=== PATIENT | female | born 1960 | race Caucasian/White ===

== ENCOUNTER 2018-11-19 08:26 | Day surgery (SDC) | payer MEDICARE, MEDICAID ==
[~2018-11-19 08:26] MED LIST: PROPOFOL INJ 200 MG/20 ML VIAL IV ONE
[2018-11-19 10:22] VITALS: BP 117/70
[2018-11-19] MEDS ORDERED: LIDOCAINE 2% INJ-PF (100 MG/5 ML) SYRINGE ONE (13:14)
--- NOTE | 2018-11-19 14:31 | Operative Report ---
Operative Report DATE OF SURGERY: 11/19/18 Operative Report: The risks, benefits and alternatives of the procedure including the risk of bleeding, perforation requiring surgery have been explained to the patient in detail and informed consent has been obtained. Patient is taken back to the endoscopy suite and placed in the left, lateral decubital position. Timeout was called. Propofol medication is administered. Rectal examination is done which did not reveal any masses, tears or fissures. An Olympus videoscope was introduced into the patient's rectum. The scope was then carefully advanced all the way to the cecum. The cecum was identified by the usual anatomical landmarks of the ileocecal valve as well as the appendiceal office. Photodocumentation is obtained. The scope was then sequentially pulled back via the various segments of the colon including the ascending colon, hepatic flexure, transverse colon, splenic flexure, descending colon and finally into the rectosigmoid portions of the colon. Retroflexion maneuvers performed. The risks benefits and alternatives of the procedure explained to the patient in detail and informed consent is obtained.A GIF Olympus video scope was inserted into the patient's mouth and hypopharynx, the esophagus is identified intubated and insufflated, the scope was then advanced through the esophagus stomach and duodenum, retroflexion maneuver is done ,the esophagus stomach and first and second portions of the duodenum examined. PREOPERATIVE DIAGNOSIS: Rectal bleeding. Epigastric pain POSTOPERATIVE DIAGNOSIS: Descending colon polyp that was removed via biopsy forceps. Internal hemorrhoids. Gastritis status post biopsy rule out Helicobacter pylori. Hiatal hernia OPERATION: Colonoscopy with biopsy. EGD with biopsy SURGEON: JOHN MERLOS ANESTHESIA: LMAC TISSUE REMOVED OR ALTERED: As noted above. COMPLICATIONS: None. ESTIMATED BLOOD LOSS: None. INTRAOPERATIVE FINDINGS: As noted above. PROCEDURE: Patient tolerated the procedure well. No immediate postprocedure complications are noted. Patient is discharged in good condition. Discharge date 11/19/2018. Discharge diet: Regular. Discharge activity: Regular. 2 to 3-week follow-up to discuss findings. Patient is instructed to call the office or proceed to the emergency room should there be any further problems or questions. Wait on the pathology. 3 to 5-year surveillance colonoscopy.
== END 2018-11-19 10:14 | disposition home or self-care (01) ==
LOC: END 08:26
PROVIDERS: ATTEND Internal Medicine Gastroenterology
DX: K29.50 Unspecified chronic gastritis without bleeding (principal); D12.4 Benign neoplasm of descending colon; K62.5 Hemorrhage of anus and rectum; K64.8 Other hemorrhoids; K44.9 Diaphragmatic hernia without obstruction or gangrene; F17.210 Nicotine dependence, cigarettes, uncomplicated; Z86.73 Personal history of transient ischemic attack (TIA), and cerebral infarction without residual deficits
CPT/HCPCS: 43239; 45380; 88305 ×2; 00813; J2001; J2704; 813

== ENCOUNTER 2019-06-12 12:41 | Emergency (ER) | payer MEDICARE, MEDICAID ==
--- NOTE | 2019-06-12 14:11 | ER Document Report ---
ED Medical Screen (RME) - General Chief Complaint: Burn Stated Complaint: BURN Time Seen by Provider: 06/12/19 14:07 Primary Care Provider: JUSTIN SEYMOUR MD [Primary Care Provider] - Follow up as needed Mode of Arrival: Wheelchair Information source: Patient Notes: 58-year-old female presents to ED for infected foot to the right foot. She is redness going up her foot ankle and long-term up her calf. She states she burned her foot on Monday, she went to [facility] on Monday they started her on some Silvadene cream and told her to watch for infection she went back today and they told her to come to the emergency room because it is infected. Patient is alert oriented respirations regular nonlabored. I have greeted and performed a rapid initial assessment of this patient. A comprehensive ED assessment and evaluation of the patient, analysis of test results and completion of medical decision making process will be conducted by an additional ED providers. TRAVEL OUTSIDE OF THE [place] IN LAST 30 DAYS: No - Related Data Allergies/Adverse Reactions: iodine Allergy (Severe, Verified 06/12/19 14:06) Anaphylaxis shellfish derived Allergy (Severe, Verified 06/12/19 14:06) Anaphylaxis latex Allergy (Verified 06/12/19 14:06) Hives Penicillins Allergy (Verified 06/12/19 14:06) Hives codeine Adverse Reaction (Mild, Verified 06/12/19 14:06) Past Medical History - General Information source: Patient - Social History Cigarette use (# per day): Yes - Half a pack a day Chew tobacco use (# tins/day): No Frequency of alcohol use: Rare Drug Abuse: None Lives with: Family Family history: Reviewed & Not Pertinent - Past Medical History Cardiac Medical History: Reports: Hx Coronary Artery Disease - MITRAL VALVE PROPLASE Denies: Hx Heart Attack, Hx Hypertension Pulmonary Medical History: Reports: Hx Pneumonia Denies: Hx Asthma, Hx Bronchitis, Hx COPD Neurological Medical History: Reports: Hx Cerebrovascular Accident - X2. Denies: Hx Seizures Endocrine Medical History: Reports: None Renal/ Medical History: Reports: None Malignancy Medical History: Reports: None GI Medical History: Reports: Hx Hiatal Hernia, Hx Colonoscopy, Hx Endoscopy Musculoskeltal Medical History: Reports Hx Arthritis, Reports Hx Musculoskeletal Deformity, Reports Hx Musculoskeletal Trauma, Reports Other - Quadriplegic Psychiatric Medical History: Reports: Hx Anxiety Past Surgical History: Reports: Hx Cholecystectomy, Hx Hysterectomy, Hx Orthopedic Surgery - C5-C6 disc repair, complete quad due to second surgery, back surgery - Immunizations Hx Diphtheria, Pertussis, Tetanus Vaccination: Yes Physical Exam - Vital signs Vitals: Temp Pulse Resp BP Pulse Ox 98.4 F 101 H 18 119/65 100 06/12/19 13:44 06/12/19 13:44 06/12/19 13:44 06/12/19 13:44 06/12/19 13:44 Course - Vital Signs Vital signs: Temp Pulse Resp BP Pulse Ox 98.4 F 101 H 18 119/65 100 06/12/19 13:44 06/12/19 13:44 06/12/19 13:44 06/12/19 13:44 06/12/19 13:44 Doctor's Discharge - Discharge Referrals: JUSTIN SEYMOUR MD [Primary Care Provider] - Follow up as needed
[2019-06-12] MEDS ORDERED: OXYCODONE-ACETAMINOPHEN 5-325 MG TABLET PO ONE ×2 (14:39→17:56)
--- NOTE | 2019-06-12 14:53 | RADIOLOGY REPORT (SQ) ---
EXAM DESCRIPTION: FOOT RIGHT COMPLETE COMPLETED DATE/TIME: 06/12/2019 2:37 pm REASON FOR STUDY: Open draining wound right foot COMPARISON: None. NUMBER OF VIEWS: Three views. TECHNIQUE: AP, lateral and oblique radiographic images acquired of the right foot. LIMITATIONS: None. FINDINGS: MINERALIZATION: Normal. BONES: Indistinctness of the superior cortex of the talus. There is no acute fracture. JOINTS: The normal tarsometatarsal alignment is preserved SOFT TISSUES: No radiopaque foreign body or subcutaneous emphysema. OTHER: No other finding. IMPRESSION: Indistinctness of the superior cortex of the talus. Consider correlation with a bone sc an or MRI to exclude an osteomyelitis. TECHNICAL DOCUMENTATION: JOB ID: [id number] [employer]- All Rights Reserved Reading location - IP/workstation name: [email or web address]
[2019-06-12 16:27] LABS: ALBUMIN 4.6 g/dL (3.5-5.0); ALKALINE PHOSPHATASE 101 U/L (38-126); ANION GAP 11 (5-19); ASPARTATE AMINO TRANSFERASE 30 U/L (14-36); BILIRUBIN,DIRECT 0.4 mg/dL (0.0-0.4); BILIRUBIN,TOTAL 0.8 mg/dL (0.2-1.3); BLOOD UREA NITROGEN 8 mg/dL (7-20); CARBON DIOXIDE 28 mmol/L (22-30); CHLORIDE 99 mmol/L (98-107); GLUCOSE 91 mg/dL (75-110); POTASSIUM 4.2 mmol/L (3.6-5.0); TOTAL PROTEIN 8.7 g/dL (6.3-8.2)
--- NOTE | 2019-06-12 16:57 | ER Document Report ---
ED General - General Chief Complaint: Burn Stated Complaint: BURN Time Seen by Provider: 06/12/19 14:07 Primary Care Provider: JUSTIN SEYMOUR MD [Primary Care Provider] - Follow up as needed Mode of Arrival: Wheelchair Notes: Patient is a 58 year old female who presents to the ED due to concerns for possible infection of her right foot after spilling hot tea on her right foot on Monday. States she saw a primary care physician on Monday and was advised to use Silvadene BID and change the dressing BID. Patient has since developed increasing pain and redness and states her skin is now sloughing off when she dabs at it. Patient complains of pain that is not controlled by her home [place]. Denies fevers. Patient is wheelchair bound due to prior surgical complication resulting in partial quadriplegia per patient. TRAVEL OUTSIDE OF THE [place] IN LAST 30 DAYS: No - Related Data Allergies/Adverse Reactions: iodine Allergy (Severe, Verified 06/12/19 14:06) Anaphylaxis shellfish derived Allergy (Severe, Verified 06/12/19 14:06) Anaphylaxis latex Allergy (Verified 06/12/19 14:06) Hives Penicillins Allergy (Verified 06/12/19 14:06) Hives codeine Adverse Reaction (Mild, Verified 06/12/19 14:06) Home Medications: mitral valve prolapse. cva x 2 Past Medical History - General Information source: Patient - Social History Smoking Status: Current Every Day Smoker Cigarette use (# per day): Yes - 3 packs per day Chew tobacco use (# tins/day): No Frequency of alcohol use: Rare Drug Abuse: None Lives with: Family Family History: Reviewed & Not Pertinent Patient has suicidal ideation: No Patient has homicidal ideation: No - Past Medical History Cardiac Medical History: Reports: Hx Coronary Artery Disease - MITRAL VALVE PROPLASE Denies: Hx Heart Attack, Hx Hypertension Pulmonary Medical History: Reports: Hx Pneumonia Denies: Hx Asthma, Hx Bronchitis, Hx COPD Neurological Medical History: Reports: Hx Cerebrovascular Accident - X2. Denies: Hx Seizures Endocrine Medical History: Reports: None Renal/ Medical History: Reports: None Malignancy Medical History: Reports: None GI Medical History: Reports: Hx Hiatal Hernia, Hx Colonoscopy, Hx Endoscopy Musculoskeletal Medical History: Reports Hx Arthritis, Reports Hx Musculoskeletal Deformity, Reports Hx Musculoskeletal Trauma, Reports Other - Quadriplegic Psychiatric Medical History: Reports: Hx Anxiety Past Surgical History: Reports: Hx Cholecystectomy, Hx Hysterectomy, Hx Orthopedic Surgery - C5-C6 disc repair, complete quad due to second surgery, back surgery - Immunizations Hx Diphtheria, Pertussis, Tetanus Vaccination: Yes Hx Pneumococcal Vaccination: 04/10/13 Review of Systems - Review of Systems Constitutional: Chills. denies: Fever Musculoskeletal: See HPI Skin: See HPI -: Yes All other systems reviewed and negative Physical Exam - Vital signs Vitals: Temp Pulse Resp BP Pulse Ox 98.4 F 101 H 18 119/65 100 06/12/19 13:44 06/12/19 13:44 06/12/19 13:44 06/12/19 13:44 06/12/19 13:44 Interpretation: Tachycardic - Notes Notes: General: Pleasant female sitting on bed appearing anxious HEENT: PERRLA, EOM intact, no sclera icterus. Mild Left eye ptosis 2/2 previous stroke Neck: No apparent swelling Cardiac: Regular rate and rhythm, no murmurs, rubs, or gallops. 2+ pulses in BLE bilaterally including palpable R dorsalis pedis pulse over burn. Pulmonary: lungs clear to auscultation bilaterally, no wheezes, rales, or rhonchi GI: Normoactive bowel sounds, no tenderness to palpation in all four quadrants MSK: RLE tender to palpation up to the knee but not including the knee. Decrease ROM in RLE at the level of the ankle secondary to pain. Decrease ROM in lower and upper extremities (L>R) 2/2 previous stroke. Skin: Partial-thickness burn located on the dorsal and medial aspect of R foot approximately 4 inches in diameter and 5 inches in length with apparent granulation tissue surrounding the border of the wound. No visible subcutaneous tissue, bone, or eschar. Some discharge noted, small amount is purulent, no fluctuance. Significant nonpitting edema in R foot as well as erythema surrounding the wound and continuing circumferentially up to mid to upper R calf and anterior pepe. Neuro: Slightly decrease sensation in RLE. Course - Re-evaluation Re-evalutation: 06/12/19 18:12 CBC unremarkable, CMP unremarkable, foot x-ray shows possible osteomyelitis but this is completely inconsistent with physical examination, there is no evidence of a deeper wound, no evidence that anything communicates with her talus. Patient is recommended to have this followed up as an outpatient by primary care physician after burn heals. Suspect that this may be some haziness from the Silvadene that has been over top of the wound. Discussed with patient inpatient versus outpatient treatment for lower extremity cellulitis, discussed the importance of keeping the left foot elevated over the next several days while she takes oral antibiotics. Patient will return if she develops fevers, increasing redness or swelling or any new or concerning symptoms. If there is no improvement in the redness in the next 48 hours she will also return for reevaluation and possible admission. - Vital Signs Vital signs: Temp Pulse Resp BP Pulse Ox 98.4 F 101 H 18 119/65 100 06/12/19 13:44 06/12/19 13:44 06/12/19 13:44 06/12/19 13:44 06/12/19 13:44 - Laboratory Result Diagrams: 06/12/19 15:40 06/12/19 15:40 Laboratory results interpreted by me: 06/12/19 15:40 Total Protein 8.7 H Lipase 15.3 L Discharge - Discharge Clinical Impression: Burn of foot, right, second degree Qualifiers: Encounter type: initial encounter Qualified Code(s): T25.221A - Burn of second degree of right foot, initial encounter Condition: Stable Disposition: HOME, SELF-CARE Additional Instructions: [place] The seriousness of a burn is not always obvious at first. Delayed tissue damage and secondary infection may occur despite proper treatment. Proper care is very important. Please apply bacitracin and a thick layer over top of this burn once a day, clean it once a day with soap and water, pat it dry and then reapply the bacitracin and cover it with a clean dressing. Soaks to remove crusting are usually started in about two days. Quiros in certain areas require stretching to prevent disabling tightness, make sure you are moving your ankle through a full circular range of motion every day. You do have an infection of the skin of the lower leg on your right leg. Please keep your foot elevated at least the level of your waist, take the Keflex 1000 mg twice a day until it is gone. If you have any increase in redness over the next 24 hours or if your redness does not improve within the next 48 hours please return to the emergency department. Prescriptions: Oxycodone HCl/Acetaminophen [Percocet 5-325 mg Tablet] 1 tab PO Q6HP PRN #15 tab PRN Reason: Bacitracin Zinc [Bacitracin Oint 15 gm] 1 applic TP DAILY #1 tube Cephalexin Monohydrate [Keflex 500 mg Capsule] 1,000 mg PO BID #28 capsule Referrals: JUSTIN SEYMOUR MD [Primary Care Provider] - Follow up as needed Wound Care [Provider Group] - Follow up as needed (Please call to arrange follow-up for care of your foot if the redness improves.)
[2019-06-12 17:50] LABS: ABSOLUTE BASOPHILS # (AUTO) 0.1 10^3/uL (0.0-0.2); ABSOLUTE EOSINOPHILS # (AUTO) 0.2 10^3/uL (0.0-0.6); ABSOLUTE MONOCYTES (AUTO) 0.9 10^3/uL (0.1-1.4); ABSOLUTE NEUT (AUTO) 7.1 10^3/uL (1.7-8.2); BASOPHILS % (AUTO) 0.7 % (0-2); HEMATOCRIT 40.3 % (36.0-47.0); HEMOGLOBIN 13.6 g/dL (12.0-15.5); LYMPHOCYTES % (AUTO) 19.4 % (13-45); MEAN CORPUSCULAR HGB CONC 33.8 g/dL (32.0-36.0); MEAN CORPUSCULAR VOLUME 89 fl (80-97); MONOCYTES % (AUTO) 8.9 % (3-13); PLATELET COUNT 222 10^3/uL (150-450); RED BLOOD COUNT 4.53 10^6/uL (3.72-5.28); TOTAL CELLS COUNTED % (AUTO) 100 %; WHITE BLOOD COUNT 10.2 10^3/uL (4.0-10.5)
[2019-06-12] MEDS ORDERED: CEPHALEXIN 500 MG CAPSULE PO ONE (18:13)
[2019-06-12 19:05] VITALS: BP 93/54
== END 2019-06-12 19:05 | disposition home or self-care (01) ==
LOC: ER 12:41
DX: T25.221A Burn of second degree of right foot, initial encounter (principal); T31.0 Burns involving less than 10% of body surface; X10.0XXA Contact with hot drinks, initial encounter; F17.210 Nicotine dependence, cigarettes, uncomplicated; I25.10 Atherosclerotic heart disease of native coronary artery without angina pectoris; Z99.3 Dependence on wheelchair; Z91.040 Latex allergy status; Z88.0 Allergy status to penicillin; Z88.6 Allergy status to analgesic agent; Z91.013 Allergy to seafood; Z86.73 Personal history of transient ischemic attack (TIA), and cerebral infarction without residual deficits
CPT/HCPCS: 99283; 36415; 87040; 83690; 85025; 80053; 73630; A9270 ×2